=== PATIENT | male | born 1940 | race Caucasian/White ===

== ENCOUNTER 2021-02-13 11:53 | Day surgery (SDC) | payer MEDICARE, BC ==
[~2021-02-13] VITALS: Ht 170.2 cm; Wt 96.8 kg
[2021-02-13] VITALS (9 sets, daily range): BP systolic 117–136; BP diastolic 23–135
[2021-02-13] MEDS ORDERED: diphenhydrAMINE 25mg capsule PO PRN (12:20)
[2021-02-13] MEDS ORDERED: normal saline 1,000 ML IV SCH ×2 (12:20→14:55)
[2021-02-13 12:42] LABS: BASOPHILS # (AUTO) 0.1 X10'3 (0-0.2); EOSINOPHILS # (AUTO) 0.3 X10'3 (0-0.9); EOSINOPHILS % (AUTO) 3.9 % (0-6); HEMATOCRIT 44.6 % (42.0-52.0); HEMOGLOBIN 15.2 g/dl (14.0-17.9); LYMPHOCYTES # (AUTO) 2.2 X10'3 (1.1-4.8); LYMPHOCYTES % (AUTO) 34.7 % (21-51); MEAN CORPUSCULAR HEMOGLOBIN 32.6 PG (27.0-31.0); MEAN CORPUSCULAR HGB CONC 34.2 g/dL (33.0-36.5); MEAN CORPUSCULAR VOLUME 95.5 FL (78-98); MEAN PLATELET VOLUME 9.7 FL (7.4-10.4); MONOCYTES # (AUTO) 0.5 X10'3 (0-0.9); MONOCYTES % (AUTO) 8.3 % (2-12); NEUTROPHILS # (AUTO) 3.3 X10'3 (1.8-7.7); NEUTROPHILS % (AUTO) 52.1 % (42-75); PLATELET COUNT 143 X10'3 (140-440); RED BLOOD COUNT 4.67 X10'6 (4.70-6.10); RED CELL DISTRIBUTION WIDTH 12.9 % (11.5-14.5); WHITE BLOOD COUNT 6.4 X10'3 (4.5-11.0)
[2021-02-13 12:49] LABS: ALBUMIN 3.7 G/DL (3.4-5.0); ANION GAP 10 (8-16); BLOOD UREA NITROGEN 20 MG/DL (7-18); BUN/CREATININE RATIO 21.5 (5.4-32.0); CALCIUM 8.6 MG/DL (8.5-10.1); CHLORIDE 108 MMOL/L (99-107); CREATININE 0.93 MG/DL (0.60-1.10); GLUCOSE 128 MG/DL (70-104); MAGNESIUM 2.1 MG/DL (1.5-2.4); POTASSIUM 4.1 MMOL/L (3.5-5.1); SODIUM 141 MMOL/L (135-145); TOTAL CARBON DIOXIDE 22.6 MMOL/L (24-32); eGFR 79 ML/MIN
[2021-02-13] MEDS ORDERED: FLO0.4C PO (12:54)
[2021-02-13] MEDS ORDERED: METO-384 PO (12:54)
[2021-02-13] MEDS ORDERED: SIMV-42 PO (12:54)
[2021-02-13] MEDS ORDERED: midazolam 1 mg/ML 2ml injection ONE (13:02)
[2021-02-13] MEDS ORDERED: iohexol 350MG/ML 100ml bottle IV ONE (13:03)
[2021-02-13] MEDS ORDERED: IOHEXOL 350 MG/ML INFUS..BTL 75ML IV ONE (13:03)
[2021-02-13] MEDS ORDERED: LIDOcaine 1% (10mg/ml)w/preservative injection 20ml MDV ONE (13:03)
[2021-02-13] MEDS ORDERED: fentaNYL/PF 50MCG/1 ML 2ML syringe ONE (13:03)
[2021-02-13] MEDS ORDERED: heparin 1,000unit/ml 10ml vial 10 ML ONE (13:47)
[2021-02-13] MEDS ORDERED: HYDROcodone/acetaminophen 10/325mg tab PO PRN (15:00)
[2021-02-13] MEDS ORDERED: HYDROcodone/acetaminophen 5mg/325mg tablet PO PRN (15:00)
[2021-02-13] MEDS ORDERED: proCHLORperazine 10 MG/2 ml inj IV PRN (15:00)
[2021-02-13] MEDS ORDERED: ondansetron/PF 4mg/2ml inj IV PRN (15:00)
== END 2021-02-13 18:22 | disposition home or self-care (01) ==
LOC: SSTAY O 11:53
PROVIDERS: ATTEND Internal Medicine Cardiovascular Disease
DX: I35.0 Nonrheumatic aortic (valve) stenosis (principal); I25.10 Atherosclerotic heart disease of native coronary artery without angina pectoris; I25.82 Chronic total occlusion of coronary artery; I27.20 Pulmonary hypertension, unspecified; E78.5 Hyperlipidemia, unspecified; I50.9 Heart failure, unspecified; Z98.890 Other specified postprocedural states; Z72.89 Other problems related to lifestyle; Z95.1 Presence of aortocoronary bypass graft; Z82.49 Family history of ischemic heart disease and other diseases of the circulatory system; Z81.8 Family history of other mental and behavioral disorders; Z79.899 Other long term (current) drug therapy
CPT/HCPCS: 36415; 80048; 83735; 85025; 85610; 93005; 93461; 99152; 99153; C1760; C1769; C1894; J1644; J2001; J2250; J3010; J7030; Q0163; Q9967; A4620; A6258; C1751

== ENCOUNTER 2021-02-22 09:35 | Outpatient (CLI) | payer MEDICARE, BC ==
[~2021-02-22 09:35] MED LIST: FLO0.4C PO; IODIXANOL 320 MG/ML 150ml INFUS..BTL IV ONE; METO-384 PO; SIMV-42 PO
[2021-03-10] MEDS ORDERED: ROSU20TA2 PO (15:59)
[2021-03-17] MEDS ORDERED: ASPI81TA53 PO (10:04)
== END 2021-02-22 23:59 | disposition home or self-care (01) ==
LOC: VAS 09:35
PROVIDERS: ATTEND Internal Medicine Cardiovascular Disease
DX: K57.30 Diverticulosis of large intestine without perforation or abscess without bleeding (principal); K86.89 Other specified diseases of pancreas; M47.815 Spondylosis without myelopathy or radiculopathy, thoracolumbar region; M25.78 Osteophyte, vertebrae; I70.1 Atherosclerosis of renal artery; I70.8 Atherosclerosis of other arteries; I70.0 Atherosclerosis of aorta; Z20.822 Contact with and (suspected) exposure to COVID-19
CPT/HCPCS: 36415; 71046; 71275; 74174; 93880; 94010; 94727; 94729; Q9967; U0003; U0005

== ENCOUNTER → 2021-04-20 | Outpatient (CLI) | payer MEDICARE, BC ==
[~2021-04-20] VITALS: Ht 170.2 cm; Wt 94.4 kg
[~2021-04-20] MED LIST changes: +ASPI81TA53 PO; -IODIXANOL 320 MG/ML 150ml INFUS..BTL IV ONE; +ROSU20TA2 PO; -SIMV-42 PO
--- NOTE | 2021-04-20 17:06 | NUR ---
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 Rollins and Dr. Beach. [facility]. Walk test completed. Vital signs measured. Echo and EKG reviewed with patient along with current condition of patients symptoms.
[2021-04-20 17:21] VITALS: BP 165/91
== END | disposition home or self-care (01) ==
LOC: TAVR 14:04
PROVIDERS: ATTEND Internal Medicine Cardiovascular Disease
DX: Z48.812 Encounter for surgical aftercare following surgery on the circulatory system (principal); Z95.2 Presence of prosthetic heart valve
CPT/HCPCS: 93005; 93308

== ENCOUNTER 2021-10-17 09:18 | Emergency (ER) | payer MEDICARE, BC ==
[~2021-10-17] VITALS: Ht 170.2 cm; Wt 90.9 kg
[2021-10-17 09:20] VITALS: BP 143/33
[2021-10-17 09:59] LABS: BASOPHILS % (AUTO) 0.9 % (0-1); EOSINOPHILS # (AUTO) 0.1 X10'3 (0-0.9); EOSINOPHILS % (AUTO) 2.7 % (0-6); HEMATOCRIT 23.3 % (42.0-52.0); HEMOGLOBIN 7.7 g/dl (14.0-17.9); LYMPHOCYTES # (AUTO) 1.2 X10'3 (1.1-4.8); LYMPHOCYTES % (AUTO) 23.1 % (21-51); MEAN CORPUSCULAR HEMOGLOBIN 26.8 PG (27.0-31.0); MEAN CORPUSCULAR HGB CONC 33.2 g/dL (33.0-36.5); MEAN CORPUSCULAR VOLUME 80.6 FL (78-98); MEAN PLATELET VOLUME 8.3 FL (7.4-10.4); MONOCYTES # (AUTO) 0.5 X10'3 (0-0.9); MONOCYTES % (AUTO) 9.9 % (2-12); NEUTROPHILS # (AUTO) 3.3 X10'3 (1.8-7.7); NEUTROPHILS % (AUTO) 63.4 % (42-75); PLATELET COUNT 199 X10'3 (140-440); RED BLOOD COUNT 2.89 X10'6 (4.70-6.10); RED CELL DISTRIBUTION WIDTH 19.5 % (11.5-14.5); WHITE BLOOD COUNT 5.2 X10'3 (4.5-11.0)
[2021-10-17 10:05] LABS: ALANINE AMINOTRANSFERASE 25 U/L (12-78); ALBUMIN 3.4 G/DL (3.4-5.0); ALKALINE PHOSPHATASE 59 IU/L (46-116); ANION GAP 12 (8-16); ASPARTATE AMINO TRANSFERASE 18 U/L (10-37); BILIRUBIN,TOTAL 0.8 MG/DL (0.1-1.0); BLOOD UREA NITROGEN 18 MG/DL (7-18); BUN/CREATININE RATIO 15.8 (5.4-32.0); CALCIUM 8.1 MG/DL (8.5-10.1); CHLORIDE 107 MMOL/L (99-107); CREATININE 1.14 MG/DL (0.60-1.10); GLUCOSE 147 MG/DL (70-104); LIPASE 142 U/L (73-393); POTASSIUM 3.8 MMOL/L (3.5-5.1); SODIUM 141 MMOL/L (135-145); TOTAL CARBON DIOXIDE 22.1 MMOL/L (24-32); TOTAL PROTEIN 6.8 G/DL (6.4-8.2); eGFR 62 ML/MIN
[2021-10-17 11:25] LABS: ANISOCYTOSIS 2+; ELLIPTOCYTES FEW; HYPOCHROMASIA 1+; PLATELET ESTIMATE NORMAL
== END 2021-10-17 19:54 | disposition left against medical advice (07) ==
LOC: ER 09:20
DX: D64.9 Anemia, unspecified (principal); R06.02 Shortness of breath; R53.1 Weakness; Z79.82 Long term (current) use of aspirin; Z79.899 Other long term (current) drug therapy
CPT/HCPCS: 36415; 71045; 80053; 83690; 85008; 85025; 93005; 99285